=== PATIENT | female | born 1950 ===

== ENCOUNTER 2018-01-02 11:10 | Emergency (ER) | payer OTHER ==
[2018-01-02] MEDS ORDERED: Tetan/Diph/Pertus SYR(Tdap)* 0.5 ML SYR(BOOSTRIX) use SYR IM ONE (11:56)
[2018-01-02 11:59] VITALS: BP 140/87
[2018-01-02] MEDS ORDERED: Benzoin Compound STICK ONE (12:26)
--- NOTE | 2018-01-02 12:31 | UC ---
Bite Injury/Animal HPI - HPI Summary HPI Summary: Bitten by strange dog while out on a hike today. Is visiting the [facility] in [place]; they have the name of the neighbor and are in touch with [facility]. Not UTD with tetanus, denies any immune suppression or previous problems with recurrent infections. - History of Current Complaint Chief Complaint: UCLaceration Stated Complaint: DOG BITE,RIGHT CALF Hx Obtained From: Patient ?: No Severity Currently: Mild Severity Initially: Mild Pain Intensity: 5 Onset/Duration: Sudden Onset Type of Bite: Animal Has Animal Been Immunized?: Unknown Character: Abrasion/Laceration Aggravating Factor(s): Nothing Alleviating Factor(s): Nothing Associated Signs And Symptoms: Positive: Swelling Hx of Bite: Provoked by: - entering animal's domain Animal Available for Observation: Yes Animal Control Notified: Yes - Risk Factors Infection/Sepsis Risk Factors: Negative - Allergies/Home Medications Allergies/Adverse Reactions: Allergies Allergy/AdvReac Type Severity Reaction Status Date / Time ciprofloxacin [From Cipro] Allergy Rash Verified 01/02/18 12:00 PMH/Surg Hx/FS Hx/Imm Hx Cardiovascular History: Hypertension - Surgical History Surgical History: None - Family History Known Family History: Positive: Hypertension - Social History Lives: With Family Alcohol Use: Rare Substance Use Type: None Smoking Status (MU): Never Smoked Tobacco Review of Systems Constitutional: Negative Skin: Other - bite wound Eyes: Negative ENT: Negative Respiratory: Negative Cardiovascular: Negative Gastrointestinal: Negative Genitourinary: Negative Motor: Negative Neurovascular: Negative Musculoskeletal: Negative Neurological: Negative Psychological: Negative Is Patient Immunocompromised?: No All Other Systems Reviewed And Are Negative: Yes Physical Exam Triage Information Reviewed: Yes Appearance: Well-Appearing, No Pain Distress, Well-Nourished Vital Signs: Initial Vital Signs Temp 98.7 F 01/02/18 11:57 Pulse 80 01/02/18 11:57 Resp 18 01/02/18 11:57 BP 140/87 01/02/18 11:57 Pulse Ox 98 01/02/18 11:57 Vital Signs Reviewed: Yes Eye Exam: Normal Eyes: Positive: Conjunctiva Clear ENT Exam: Normal ENT: Positive: Normal ENT inspection, Hearing grossly normal, Pharynx normal, TMs normal Dental Exam: Normal Neck exam: Normal Neck: Positive: Supple, Nontender, No Lymphadenopathy Respiratory Exam: Normal Respiratory: Positive: Chest non-tender, Lungs clear, Normal breath sounds, No respiratory distress, No accessory muscle use Cardiovascular Exam: Normal Cardiovascular: Positive: RRR, No Murmur Musculoskeletal Exam: Other - No tenderness over R achilles tendon, full strength and ROM of R ankle/calf. Musculoskeletal: Positive: Strength Intact, ROM Intact Neurological Exam: Normal Neurological: Positive: Alert Psychological Exam: Normal Skin Exam: Other - Irreg 4cm superficial abrasion/lacerations, no PW, on R posterior calf/ankle. Procedures - Laceration/Wound Repair 1 Location: lower extremity Description: Irregular Length, Depth and Shape: 4cm long, entirely irregular and macerated Betadine Prep?: No Irrigated w/ Saline (ccs): 1,000 Laceration/Wound Explored: no foreign body removed Closure: SteriStrips Layer Closure?: No Sterile Dressing Applied?: No Bite Injury Course/Dx - Differential Dx/Diagnosis Provider Diagnoses: R calf dog bite. R calf laceration steristrips Discharge - Sign-Out/Discharge Documenting (check all that apply): Discharge/Admit/Transfer - Discharge Plan Condition: Stable Disposition: HOME Prescriptions: Amoxicillin/Clavulanate TAB* [Augmentin TAB 875*] 875 mg PO BID #10 tab Patient Education Materials: Animal Bite (ED) Referrals: [facility] [Outside] Additional Instructions: Come back right away if there is increasing redness, swelling, pain, or drainage. - Billing Disposition and Condition Condition: STABLE Disposition: Home
== END 2018-01-02 12:39 | disposition home or self-care (01) ==
LOC: UCEAST 11:10
DX: S81.851A Open bite, right lower leg, initial encounter (principal); W54.0XXA Bitten by dog, initial encounter; Y93.9 Activity, unspecified; Y99.9 Unspecified external cause status; I10 Essential (primary) hypertension
CPT/HCPCS: 90471; 90715; 99202; G0463